=== PATIENT | female | born 1950 | race Caucasian/White ===

== ENCOUNTER → 2018-03-02 | Outpatient (CLI) | payer OTHER, MEDICARE | LOC: RAD 10:32 | DX: Z12.31 Encounter for screening mammogram for malignant neoplasm of breast (principal) ==

== ENCOUNTER 2018-07-15 09:02 | Emergency (ER) | payer OTHER, MEDICARE ==
[~2018-07-15] VITALS: Ht 154.9 cm; Wt 45.8 kg
--- NOTE | ~2018-07-15 | EKG ---
[place] [address] [email or web address] [place] [address] ELECTROCARDIOGRAM REPORT Name: ADRIANA HOLBROOK [id number] Admission: 07/15/18 Attend Phys: Discharge: Date of : 48 Report #: [id number] THIS REPORT FOR: //name// [facility] ED Test Date: 2018-07-15 Test Time: 09:36:56 Pat Name: ADRIANA HOLBROOK Department: Room: Gender: F Torch Operator: . : 1950 Requested By: Dk Fraser Order Number: [id number] MD: Conor Chung Measurements Intervals [place] Rate: 92 P: 76 MT: 145 QRS: 94 QRSD: 102 T: 36 QT: 369 QTc: 457 Interpretive Statements Sinus rhythm Nonspecific ST segment abnormality Compared to ECG 05/21/2003 21:38:34 No significant change was found Electronically Signed On 07-15-2018 9:51:49 [employer] by Conor Chung [email or web address] <ELECTRONICALLY SIGNED> By: Conor Chung MD, [facility] 07/15/18 0951 [id number] Conor Chung MD, FACC /EPI
[2018-07-15 09:43] LABS: ABSOLUTE NEUTROPHILS 6.8 thou/uL (1.4-8.2); BASOPHILS 1.4 % (0.0-2.0); EOSINOPHILS 5.4 % (0.0-3.0); HEMATOCRIT 45.6 % (37.0-47.0); HEMOGLOBIN 15.1 gm/dL (12.0-15.0); LYMPHOCYTES 13.9 % (24.0-44.0); MCH 30.7 pg (26.0-34.0); MCHC 33.1 g/dL (28.0-37.0); MCV 92.7 fL (80.0-100.0); MONOCYTES 7.1 % (1.0-8.0); PLATELET COUNT 361 thou/uL (150-400); POLYS 72.2 % (36.0-66.0); RBC 4.91 mil/uL (4.20-5.00); WBC 9.5 thou/uL (4.0-11.0)
[2018-07-15 09:47] LABS: ANION GAP 13 mmol/L (7-16); BUN 10 mg/dL (7-18); CALCIUM 8.8 mg/dL (8.5-10.1); CHLORIDE 103 mmol/L (98-107); CO2 25 mmol/L (21-32); CREATININE 0.9 mg/dL (0.6-1.0); GLUCOSE 98 mg/dL (74-106); POTASSIUM 3.5 mmol/L (3.5-5.1); SODIUM 141 mmol/L (136-145)
[2018-07-15 09:54] LABS: TROPONIN-I <0.06 ng/mL (<0.06)
[2018-07-15] MEDS ORDERED: PROMETHAZINE V118 M1 PO (10:40)
[2018-07-15] MEDS ORDERED: MUCINEX DM ER1 EAC1 PO (10:40)
[2018-07-15] MEDS ORDERED: PREDNISONE 10 M10 M1 PO (10:40)
[2018-07-15] MEDS ORDERED: VENTOLIN HFA 1818 GM INH (10:40)
[2018-07-15 11:44] VITALS: BP 136/77
== END 2018-07-15 11:45 | disposition left against medical advice (07) ==
LOC: ER 09:02
PROVIDERS: Emergency Medicine
DX: J44.1 Chronic obstructive pulmonary disease with (acute) exacerbation (principal); I10 Essential (primary) hypertension; Z87.891 Personal history of nicotine dependence; Z88.5 Allergy status to narcotic agent; Z90.89 Acquired absence of other organs

== ENCOUNTER → 2019-05-09 | Outpatient (CLI) | payer OTHER, MEDICARE ==
[~2019-05-09] MED LIST: MUCINEX DM ER1 EAC1 PO; PREDNISONE 10 M10 M1 PO; PROMETHAZINE V118 M1 PO; VENTOLIN HFA 1818 GM INH
== END ==
LOC: RAD 14:05
DX: Z12.31 Encounter for screening mammogram for malignant neoplasm of breast (principal)